=== PATIENT | female | born 1935 | race Caucasian/White ===

== ENCOUNTER → 2020-07-05 | Outpatient (CLI) | payer MEDICARE, OTHER ==
[2020-07-05] MEDS: IV NORMAL SALINE 1,000ML 1,000 ML IV ONE ×2 (10:30→12:30)
[2020-07-05 10:40] VITALS: BP 168/69
== END | disposition home or self-care (01) ==
LOC: OPINF 10:14
PROVIDERS: ATTEND Family Medicine
DX: E86.0 Dehydration (principal)
CPT/HCPCS: 82947; 96360; 96361; J7030; 36592

== ENCOUNTER 2020-10-05 10:58 | Emergency (ER) | payer MEDICARE, OTHER ==
[~2020-10-05] VITALS: Ht 167.6 cm; Wt 92.8 kg
[2020-10-05] MEDS ORDERED: PROCHLORPERAZINE 10 MG/2 ML VIAL. IV ONE (12:00)
[2020-10-05] MEDS ORDERED: KETOROLAC 30 MG/ML VIAL. IVP ONE (12:00)
[2020-10-05] MEDS ORDERED: IV NORMAL SALINE 1,000ML 1,000 ML IV ONE (12:00)
[2020-10-05] MEDS ORDERED: diphenhydrAMINE 50 MG/ML VIAL IVP ONE (12:00)
--- NOTE | 2020-10-05 12:02 | PHYS DOC ---
Past History Past Surgical History: Other Additional Past Surgical Histo: knees, shoulders, eyes Alcohol Use: None General Adult EDM: Chief Complaint: SHORTNESS OF BREATH HPI: HPI: 84-year-old female presents with shortness of breath and globus sensation. She tells me that she has been diagnosed with asthma and takes breathing treatments daily. She was feeling more short of breath the last day or 2 and called her foam caster who prescribed prednisone. She started her first dose this morning. She presents today because she has a sensation of globus in addition to feeling somewhat short of breath. The shortness of breath is not all the time. Her oxygen level is always normal according to the patient. She does not like the feeling of shortness of breath. Patient has sleep apnea and uses CPAP every day. Her sensation of globus is intermittent coming and going but it is been there for about 3 days. She tells me that it is difficult to eat when this happens. She has not had an EGD. Finally she complains of headache for the last couple of days. She describes it as a global tension. She denies any focal deficits. She denies fever or chills. Review of Systems: Review of Systems: Constitutional: Denies fever or chills Eyes: Denies change in visual acuity HENT: Globus sensation. Denies nasal congestion or sore throat Respiratory: shortness of breath Cardiovascular: Denies chest pain or edema GI: Denies abdominal pain, nausea, vomiting, bloody stools or diarrhea : Denies dysuria Musculoskeletal: Denies back pain or joint pain Integument: Denies rash Neurologic: Denies headache, focal weakness or sensory changes Endocrine: Denies polyuria or polydipsia Lymphatic: Denies swollen glands Psychiatric: Denies depression or anxiety Allergies: Allergies: Allergies Coded Allergies Type Severity Reaction Last Updated Verified metoclopramide Allergy Unknown 10/05/20 Yes Physical Exam: PE: Constitutional: Well developed, well nourished, obese, no acute distress, non- toxic appearance. [] HENT: Normocephalic, atraumatic, bilateral external ears normal, oropharynx moist, no oral exudates, nose normal. [] Eyes: PERRLA, EOMI, conjunctiva normal, no discharge. [] Neck: Normal range of motion, no tenderness, supple, no stridor. [] Cardiovascular: Heart rate regular rhythm, no murmur [] Lungs & Thorax: Bilateral breath sounds clear to auscultation [] Abdomen: Bowel sounds normal, soft, no tenderness, no masses, no pulsatile masses. [] Skin: Warm, dry, no erythema, no rash. [] Back: No tenderness, no CVA tenderness. [] Extremities: No tenderness, no cyanosis, no clubbing, ROM intact, no edema. [] Neurologic: Alert and oriented X 3, normal motor function, normal sensory function, no focal deficits noted. [] Psychologic: Affect normal, judgement normal, mood normal. [] Current Patient Data: Vital Signs: Vital Signs Date Time Temp Pulse Resp B/P (MAP) Pulse Ox O2 Delivery O2 Flow Rate FiO2 10/05/20 11:02 98.4 102 16 194/75 98 Room Air EKG: EKG: Sinus tachycardia, rate 112, normal axis, no ST elevation or depression. [] Radiology/Procedures: Radiology/Procedures: [] Impressions: XR NECK SOFT TISSUE History: Reason: globus feeling, SOB / Spl. Instructions: / History: Technique: 2 views neck soft tissues. Comparison: None. 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 Prevertebral soft tissues unremarkable. Vascular calcific effusions within the region of the carotid bifurcations. Normal appearance of the epiglottis. No radiopaque foreign bodies. Impression: 1. No radiopaque foreign body. Electronically signed by: Viet Clay DO (10/05/2020 12:52 PM) [id number] DICTATED AND SIGNED BY: VIET CLAY DO DATE: 10/05/20 1251 CC: LAINE SARKAR DO; HERNESTO WOMACK ~[facility]0 0 XR CHEST 1V History: Reason: globus feeling, SOB / Spl. Instructions: / History: Comparison: None. Findings: No consolidation or pleural effusion. Normal heart size. No pneumothorax. Advanced bilateral glenohumeral DJD. No radiopaque foreign body. Impression: 1. No acute cardiopulmonary process. Electronically signed by: Viet Clay DO (10/05/2020 12:53 PM) [id number] DICTATED AND SIGNED BY: VIET CLAY DO DATE: 10/05/20 1252 CC: LAINE SARKAR DO; HERNESTO WOMACK ~[facility]0 0 Heart Score: C/O Chest Pain: N/A Risk Factors: Risk Factors: DM, Current or recent (<one month) smoker, HTN, HLP, family history of CAD, obesity. Risk Scores: Score 0 - 3: 2.5% MACE over next 6 weeks - Discharge Home Score 4 - 6: 20.3% MACE over next 6 weeks - Admit for Clinical Observation Score 7 - 10: 72.7% MACE over next 6 weeks - Early Invasive Strategies Course & Med Decision Making: Course & Med Decision Making Pertinent Labs and Imaging studies reviewed. (See chart for details) The patient CBC is unremarkable. Her CMP shows an elevated anion gap and low CO2. Her potassium is a little high at 5.5 but the rest of her labs are essentially unremarkable. Her chest x-ray is negative for acute findings. Her urinalysis is negative for infection. Do not see any reason for the patient have an elevated gap. She is feeling fine in the room. She is fully alert and aware. I discussed all these results with the patient and she has just started treatment for her shortness of breath with steroids. She is willing to go home and see if this improves her condition and her labs. She will repeat her labs next week with her primary care physician. I believe this is reasonable. She is stable for discharge at this time. If her condition worsens in any way she will return to the emergency room. [] Rickey Disclaimer: Rickey Disclaimer: This electronic medical record was generated, in whole or in part, using a voice recognition dictation system. Departure Departure: Impression: Primary Impression: Globus sensation Additional Impression: SOB (shortness of breath) Disposition: 01 HOME / SELF CARE / HOMELESS Condition: STABLE Referrals: HERNESTO WOMACK (PCP) Patient Instructions: Globus Syndrome, Shortness of Breath, [id number] LAINE SARKAR DO Oct 05, 2020 12:02
--- NOTE | 2020-10-05 12:54 | RAD ---
XR NECK SOFT TISSUE History: Reason: globus feeling, SOB / Spl. Instructions: / History: Technique: 2 views neck soft tissues. Comparison: None. 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 Prevertebral soft tissues unremarkable. Vascular calcific effusions within the region of the carotid bifurcations. Normal appearance of the epiglottis. No radiopaque foreign bodies. Impression: 1. No radiopaque foreign body. Electronically signed by: Viet Yusuf DO (10/05/2020 12:52 PM) [id number]
--- NOTE | 2020-10-05 12:55 | RAD ---
XR CHEST 1V History: Reason: globus feeling, SOB / Spl. Instructions: / History: Comparison: None. Findings: No consolidation or pleural effusion. Normal heart size. No pneumothorax. Advanced bilateral glenohum eral DJD. No radiopaque foreign body. Impression: 1. No acute cardiopulmonary process. Electronically signed by: Viet Yusuf DO (10/05/2020 12:53 PM) [id number]
[2020-10-05 13:04] LABS: BASO % 0 % (0-3); EOS % 0 % (0-3); HEMATOCRIT 37.4 % (36.0-47.0); HEMOGLOBIN 12.3 g/dL (12.0-15.5); LYMPH # 1.2 x10^3/uL (1.0-4.8); LYMPH % 26 % (24-48); MEAN CORPUSCULAR HEMOGLOBIN 32 pg (25-35); MEAN CORPUSCULAR HGB CONC 33 g/dL (31-37); MEAN CORPUSCULAR VOLUME 98 fL (79-100); MONO # 0.1 x10^3/uL (0.0-1.1); MONO % 2 % (0-9); NEUT # 3.3 x10^3uL (1.8-7.7); NEUT % 72 % (31-73); PLATELET COUNT 267 x10^3/uL (140-400); RED BLOOD COUNT 3.83 x10^6/uL (3.50-5.40); RED CELL DISTRIBUTION WIDTH 15.7 % (11.5-14.5); WHITE BLOOD COUNT 4.7 x10^3/uL (4.0-11.0)
[2020-10-05 14:18] LABS: CALCIUM 8.9 mg/dL (8.5-10.1); GFR 53.1; POTASSIUM 5.5 mmol/L (3.5-5.1)
[2020-10-05 14:23] LABS: ALBUMIN 3.5 g/dL (3.4-5.0); ALBUMIN/GLOBULIN RATIO 1.1 (1.0-1.7); TOTAL BILIRUBIN 0.3 mg/dL (0.2-1.0); TOTAL PROTEIN 6.7 g/dL (6.4-8.2)
[2020-10-05 15:35] LABS: BILIRUBIN,URINE SMALL (NEG); CLARITY,URINE HAZY; COLOR,URINE YELLOW; GLUCOSE,URINE NEG (NEG); NITRITE,URINE NEG (NEG); UROBILINOGEN,URINE 0.2 mg/dL (0.2 mg/dL)
[2020-10-05 15:37] LABS: BACTERIA,URINE 0 /HPF (0-FEW); RBC,URINE 0 /HPF (0-2); WBC,URINE RARE /HPF (0-4)
[2020-10-05] MEDS ORDERED: SODIUM BICARB ADULT 8.4% 50 MEQ/50 ML DISP.SYRIN. IV ONE (16:00)
[2020-10-05 16:31] VITALS: BP 165/79
--- NOTE | 2020-10-05 19:25 | EKG ---
[address] [address] Test Date: 2020-10-05 Test Time: 12:09:51 Pat Name: HOLLY CRISTOBAL Department: Room: Gender: F Lending Manager: RUSS : [id number] Requested By: LAINE SARKAR Order Number: [id number] Reading MD: Measurements Intervals [place] Rate: 112 P: -5 GA: 170 QRS: 14 QRSD: 78 T: 172 QT: 328 QTc: 449 Interpretive Statements SINUS TACHYCARDIA ST & T ABNORMALITY, CONSIDER HIGH LATERAL ISCHEMIA OR LEFT VENTRICULAR STRAIN T ABNORMALITY IN INFERIOR LEADS ABNORMAL ECG RI6.02 No previous ECG available for comparison
== END 2020-10-05 16:38 | disposition home or self-care (01) ==
LOC: ER 10:58
DX: F45.8 Other somatoform disorders (principal); R06.02 Shortness of breath; R51.9 Headache, unspecified; Z88.8 Allergy status to other drugs, medicaments and biological substances
CPT/HCPCS: 36415; 70360; 71045; 80053; 81001; 84484; 85025; 93005; 96361; 96374; 96375; 99284; J0780; J1200; J1885; J7030

== ENCOUNTER → 2021-03-19 | Outpatient (CLI) | payer MEDICARE, OTHER ==
--- NOTE | 2021-03-26 12:40 | RAD ---
DATE: 03/19/2021 EXAM: MG BILAT SCREEN+NIRANJAN HISTORY: Screening COMPARISON: 11/18/2018 and 05/01/2016 This study was interpreted with the benefit of Computerized Aided Detection (CAD). Breast Density: SCATTERED The breast parenchyma shows scattered fibroglandular densities. Breast pare nchyma level B. FINDINGS: No suspicious mass, suspicious calcification, or architectural distortion. IMPRESSION: No evidence of malignancy. BI-RADS CATEGORY: 1 NEGATIVE RECOMMENDED FOLLOW-UP: 12M 12 MONTH FOLLOW-UP PQRS compliance statement: Patient information was entered into a reminder system with a target due d ate for the next mammogram. Mammography is a sensitive method for finding small breast cancers, but it does not detect them all a nd is not a substitute for careful clinical examination. A negative mammogram does not negate a clin ically suspicious finding and should not result in delay in biopsying a clinically suspicious abnorma lity. "Our facility is accredited by the [employer] Mammography Program." Electronically signed by: Nesha Pleitez MD (03/26/2021 12:37 PM) [id number]
== END ==
LOC: MAMMO 08:09
PROVIDERS: ATTEND Family Medicine
DX: Z12.31 Encounter for screening mammogram for malignant neoplasm of breast (principal)
CPT/HCPCS: 77063; 77067